=== PATIENT | female | born 1985 | race Caucasian/White ===

== ENCOUNTER 2023-03-26 17:04 | Observation (INO) | payer MEDICARE, MEDICAID, SELFPAY ==
--- NOTE | 2023-03-03 17:05 | PCM.HP.BLA ---
History and Physical Date of Admission: 03/26/23 HPI: The patient is a 37 year old female presenting for pre-operative visit. She is scheduled for total laparoscopic hysterectomy with bilateral salpingectomy, exam under anesthesia and cystoscopy, for abnormal uterine bleeding and pelvic pain on 03/26/2023. Procedure discussed along with risks, benefits and complications. Other alternatives discussed for management. Consent form signed? Yes. ? ? PAST MEDICAL HISTORY PAST MEDICAL HISTORY Diagnosis Date ? Allergic rhinitis, cause unspecified ? ? Allergic rhinitis ? Celiac artery compression syndrome (HCC) ? ? Colon polyps ? ? Constipation ? ? Diarrhea ? ? Dysphagia ? ? Eczema ? ? Esophageal reflux ? ? Gastroesophageal reflux ? Fracture ? ? Right Collarbone ? Hemorrhoid ? ? Hemorrhoids ? Liver hemangioma ? ? Median arcuate ligament syndrome (HCC) ? ? Ovarian cyst ? ? ? PAST SURGICAL HISTORY PAST SURGICAL HISTORY Procedure Laterality Date ? DELIVERY ONLY ? 10/02/2015 ? , low transverse ? CHOLECYSTECTOMY ? 02/25/2019 ? ? COLONOSCOPY ? ? ? EGD ? ? ? LAPS ABD PRTM&OMENTUM DX W/WO SPEC BR/WA SPX ? 03/2017 ? LAPAROSCOPIC RELEASE OF MEDIAN ARCUATE LIGAMENT ? PAST SURGICAL HISTORY OF ? 04/01/2017 ? [facility] ? SPINE SURGERY HX ? 03/07/2022 ? spinal cord stimulator ? TONSILLECTOMY HX ? CURRENT MEDICATIONS Current Outpatient Medications Medication Sig Dispense Refill ? UBRELVY 100 mg tablet 1 AT ONSET OF MIGRAINE. MAY REPEAT IN 2 HOURS IF NEEDED. DONE EXCEED 2 DOSAGES IN 24 HOURS. ? ? ? DULoxetine (CYMBALTA) 60 mg capsule Take 60 mg by mouth once daily. ? ? ? hydrOXYzine HCl (ATARAX) 10 mg tablet TAKE 1 TABLET BY MOUTH 3 TIMES DAILY NEEDED FOR ANXIETY OR MUSCLE SPASMS. ? ? ? cyclobenzaprine (FLEXERIL) 10 mg tablet TAKE 1 TABLET BY MOUTH 2 TIMES DAILY NEEDED FOR MUSCLE SPASMS. ? ? ? amitriptyline (ELAVIL) 50 mg tablet TAKE 1 TABLET BY MOUTH EVERYDAY AT BEDTIME ? ? ? gabapentin (NEURONTIN) 800 mg tablet Take 800 mg by mouth four times daily. ? ? ? ibuprofen (MOTRIN) 400 mg tablet Take 400 mg by mouth every 6 hours as needed for Pain. ? ? ? levonorgestrel (MIRENA) 20 mcg/24 hours (5 yrs) 52 mg IUD 1 Each by INTRAUTERINE route as directed. 1 Each 0 ? diltiazem (CARDIZEM) 30 mg tablet Take 30 mg by mouth twice daily. ? 5 ? HYDROcodone-acetaminophen (NORCO) 5-325 mg per tablet Take 1 tablet by mouth every 4 hours as needed. ? ? ? tiZANidine (ZANAFLEX) 4 mg tablet TAKE 1 TABLET BY MOUTH EVERYDAY AT BEDTIME ? 0 ? esomeprazole (NEXIUM) 40 mg capsule Take 40 mg by mouth. ? ? ? meclofenamate (MECLOMEN) 100 mg capsule Take 1 capsule by mouth every 6 hours. 30 capsule 1 ? promethazine (PHENERGAN) 25 mg tablet Take 25 mg by mouth. ? ? ? ondansetron (ZOFRAN) 4 mg tablet Take 1 tablet by mouth every 8 hours as needed for Nausea/Vomiting. 90 tablet 5 ? diphenhydramine HCl (BENADRYL ORAL) Take by mouth as needed. ? MULTIVIT-MINERALS/FOLIC ACID (WOMEN'S MULTIVITAMIN GUMMIES ORAL) Take by mouth once daily. ? ? ? acetaminophen (TYLENOL) 325 mg tablet Take 2 tablets by mouth every 6 hours as needed for Pain (first line pain medication). ? ? ? No current facility-administered medications for this visit. ? ? ALLERGIES: Seasonal Allergies ? PERSONAL HISTORY: SOCIAL HISTORY Social History ? Tobacco Use ? Smoking status: Never ? Smokeless tobacco: Never Vaping Use ? Vaping Use: Never used Substance Use Topics ? Alcohol use: Yes ? ? Comment: Rarely ? Drug use: No ? FAMILY HISTORY: FAMILY HISTORY FAMILY HISTORY Problem Relation Age of Onset ? Hyperlipidemia Mother ? ? Hypertension Mother ? ? Heart Mother ? ? Breast Cancer Mother 61 ? Colon Cancer Father ? ? Diabetes Father ? ? other (Bipolar) Sister ? ? Breast Cancer Maternal Grandmother ? ? Thyroid Maternal Grandmother ? ? Hypertension Maternal Grandfather ? ? Skin Cancer Maternal Grandfather ? ? Melanoma, BCC ? other (colon polyps) Maternal Grandfather ? ? Breast Cancer Paternal Grandmother ? ? other (Pancreatitis) Paternal Grandmother ? ? Heart Paternal Grandfather ? ? other (Healthy) Daughter ? ? other (Healthy) Son ? ? ? REVIEW OF SYMPTOMS: GENERAL: denies fevers or chills ENDOCRINOLOGY: has not been on steroids Cardiology : denies palpitations or chest pain Respiratory: denies SOB or cough Hematology: denies history of prolonged bleeding or easy bruising or VTE Allergy: Denies history of personal or family history of allergy to anesthesia ? ? PHYSICAL EXAMINATION: ? VITALS: Blood pressure 118/76, pulse 84, resp. rate 16, height 5' 2 (1.575 m), weight 225 lb (102.1 kg), last menstrual period 03/22/2021, SpO2 96 %. ? GENERAL: The patient is well nourished, well hydrated in no acute distress. , The patient is oriented to time, place, and person. NECK: Supple. No lynphadenopathy, normal thyroid, no thyromegaly. LUNGS: Clear to auscultation bilaterally. no wheezes, rhonchi or rales HEART: Regular rate and rhythm, Normal heart sounds, and No murmurs or gallops EMB-01/06/2023 neg pap/hrhpv 12/2022- neg pelvic US 12/22/22 DATE OF EXAM: Dec 22 2022 11:34AM ? WRU ? 1060 ?- ?US FEMALE PELVIS TRANSVAG ?/ PROCEDURE REASON: Pelvic pain ?? ? * * * * Physician Interpretation * * * * ?EXAMINATION: ? TRANSVAGINAL AND LIMITED TRANSABDOMINAL PELVIC ULTRASOUND CLINICAL HISTORY: ?Pelvic pain. ?IUD TECHNIQUE: Sonography of the pelvis was performed by transvaginal and transabdominal (limited) techniques. ?Images were obtained and stored in a permanent archive. MQ: ?UFP_1 COMPARISON: 11/21/2019 RESULT: Uterus size: 10 x 4.2 x 4.5 cm ?? ? -Orientation: Anteverted ?? ? -Myometrium: Normal sonographic appearance. ?? ? -Endometrial echo complex: 0.5 cm . ?IUD in good position within the endometrium ?? ? -Cervix: Small amount of endocervical fluid Right ovary: 3.4 x 2.9 x 2.1 cm Simple 1.5 cm cyst Left ovary: 4.1 x 2.5 x 3 cm Simple 2.4 cm cyst Pelvis free fluid: None. ? IMPRESSION: Abnormal uterine bleeding, pelvic pain. ? PLAN: The risks/benefits/alternatives and personal involved for the planned TLH, bilateral salpingectomy and cystoscopy were reviewed with the patient. Her questions were answered to her satisfaction and she desires to proceed. Consent was signed. I reviewed with her postop instructions and expectations. ? ? I have reviewed and updated past medical and surgical history, medications and allergies Assessment & Plan Assessment/Plan (1) Pelvic pain: (2) Abnormal uterine bleeding (AUB):
--- NOTE | 2023-03-19 10:01 | EKG12_ITS ---
Test Reason : PRE OP Blood Pressure : / mmHG Vent. Rate : 085 BPM Atrial Rate : 085 BPM P-R Int : 146 ms QRS Dur : 072 ms QT Int : 348 ms P-R-T Axes : 037 009 019 degrees QTc Int : 414 ms Normal sinus rhythm Normal ECG Confirmed by JAMES CERON, ERNESTO ([id number]), editor newspaper MARLON BRANNON ([id number]) on 03/20/2023 8:44:25 AM Referred By: Lois Austin Confirmed By:ERNESTO RAMIREZ MD
[2023-03-19 10:55] LABS: Hematocrit 37.3 % (37-47); Hemoglobin 12.3 g/dL (12.0-15.0); Mean Corpuscular Hgb 31.7 pg (27.0-32.0); Mean Corpuscular Volume 96.1 fL (81-99); Mean Platelet Vol. 10.9 fl (6.2-12.0); Platelet Count 369 K/mm3 (150-450); RBC Distribution Width CV 12.4 % (11.6-14.6); RBC Distribution Width SD 43.1 fl (35.1-43.9); Red Blood Count 3.88 M/mm3 (4.2-5.4); White Blood Count 8.9 K/mm3 (4.4-11.0)
[2023-03-19 11:35] LABS: Anion Gap 6 (5-15); BUN 8 mg/dL (7-18); BUN/Creat Ratio 10.8 RATIO (10-20); Calcium,Total 9.7 mg/dL (8.5-10.1); Chloride 106 mmol/L (98-107); Creatinine, Serum 0.74 mg/dL (0.55-1.02); EST Glomerular Filtration Rate 94 mL/min (>60); Est Glom Filt Rate - Afr Amer 114 mL/min (>60); Glucose 105 mg/dL (74-106); Potassium 3.9 mmol/L (3.5-5.1); Sodium Level 138 mmol/L (136-145)
[2023-03-26] VITALS (16 sets, daily range): BP systolic 91–137; BP diastolic 43–87; PULSE 83–108; RESP 1–18; TEMP 36.4–37.2; O2SAT 93–100; BMI 42.2
[2023-03-26 06:16] LABS: Internal QC Validated? YES +Cl - CLEAR BKGD; Pregnancy, Urine Negative Negative
[2023-03-26] MEDS: Enoxaparin 40 MG/0.4 ML Syringe SC (06:34)
[2023-03-26] MEDS: Acetaminophen 500 MG Tablet 1000 MG PO ×3 (06:34→22:45)
[2023-03-26] MEDS: Phenazopyridine 95 MG Tablet 190 MG PO (06:35)
[2023-03-26] MEDS: Celecoxib 200 MG Capsule 400 MG PO (06:35)
[2023-03-26] MEDS: Scopolamine 1mg/72hr Patch 1 PATCH TD (06:36)
[2023-03-26] MEDS: Gabapentin 600 MG Tablet PO (06:36)
[2023-03-26] MEDS: Lactated Ringers 1,000 ML 40 ML IV (06:37)
[2023-03-26] MEDS: Magnesium 1 GM over 15 mins IV (06:38)
--- NOTE | 2023-03-26 07:30 | HYST_PTH ---
PATIENT: ZEN LUTZ LOC: [facility]3 U#:[id number] AGE/SX: 37/F [place] [facility] [place]26/[address]: Dr. Lois Austin MD : [id number] BED: 1 DIS: 03/27/2023 SPEC #: [id number] RECD: 03/26/23 11:19 STATUS: MAXIM REMiguel A #: [id number] SELENE: 03/26/23 07:[address]: Lois Austin DEPT: SURGICAL PATHOLOGY RECD BY: Radha Barriga ENTERED: 03/26/23 11:32 SP TYPE: HYSTERECT OTHR DR: Dr. Janak Vinson MD Tissues: Uterus, NOS Procedures: Surgery Specimen Level V HEADER OPERATION: ERAS, total laparoscopic hysterectomy, salpingectomy, cysto PRE-OP DIAGNOSIS: Pelvic pain, abnormal uterine bleeding TISSUE SUBMITTED: Uterus, cervix, bilateral tubes MICROSCOPIC DIAGNOSIS Uterus, cervix, bilateral fallopian tubes, hysterectomy and bilateral salpingectomy: Cervix ? chronic cystic cervicitis. Endometrium ? consistent with exogenous hormone effect with focal cystic changes. Myometrium - no pathologic diagnosis. Bilateral fallopian tubes - no pathologic diagnosis. IUD, gross only. See comment. CRISTOBAL:kraig 03/27/2023 COMMENT Cylindrical segment of tissue attached to the anterior uterine wall is consistent with fibromuscular tissue. Clinical correlation and appropriate follow-up are necessary. MICROSCOPIC DESCRIPTION Slides are reviewed. GROSS DESCRIPTION Received in fixative is one container labeled with the patient's name and designated uterus, cervix, bilateral fallopian tubes. The specimen consists of a hysterectomy specimen consisting of uterus with cervix and detached bilateral fallopian tubes. The uterus with cervix weighs 104 gm and measures 10.5 x 7.0 x 4.0 cm. At the fundus anteriorly, a cylindrical segment of indurated tissue is noted measuring 1.0 cm in length and 0.7 cm in diameter. The ectocervical mucosa is unremarkable. The external os is circular in contour and covered with hemorrhagic, mucoid fluid. A portion of string from an IUD is projecting beyond the external os. The endocervical canal measures 4.0 cm in length and the endocervical mucosa is bojorquez, glistening and unremarkable. The triangular endometrial cavity measures 4.5 cm in length and 2.5 cm in width. The endometrial cavity shows a well-positioned white T-shaped intrauterine device. The horizontal arm measures 3.2 cm in length and vertical arm of the T measures 3.0 cm in length. A two-prong suture measures 9.5 cm in length. Invasion into the uterine wall is not seen. The endometrium is bojorquez, glistening without any mass lesion and measures 0.2 cm in thickness. Sections of the uterine wall do not reveal any mass lesion and measures 2.0 cm in thickness. The fallopian tubes are not identified as right or left and each measure 7.0 cm in length and 0.5 cm in diameter. Sections reveal unremarkable cut surfaces. Atm Manager sections are submitted in nine cassettes as follows: 1 - anterior cervix, 2 - posterior cervix, 3 & 4 - anterior uterine wall, 5 & 6 - posterior uterine wall, 7 - cylindrical structure present at the fundus anterior surface, 8 - one fallopian tube, 9 - second fallopian tube. / CRISTOBAL:kraig 03/26/2023 TC:5 CPT: 93092
[2023-03-26 08:10] LABS: Bedside Glucose 105 mg/dL (74-106)
[2023-03-26] MEDS: Cefazolin 2 GM in 0.9% Normal Saline 100 ML IV (08:30)
[2023-03-26] MEDS: Bupivacaine Mpf 0.5% 30 ML VIAL (08:37)
[2023-03-26] MEDS: Lubricating Jelly 60 GM Tube 30 GM (08:37)
[2023-03-26] MEDS: dexAMETHasone 4 MG/ML Vial 8 MG IV (08:41)
[2023-03-26] MEDS: Ondansetron 4 MG/2 ML Vial IV (09:45)
--- NOTE | 2023-03-26 10:04 | OP.PCM_ITS ---
Problems Associated Problem List Diagnoses (1) Pelvic pain: (2) Abnormal uterine bleeding (AUB): Report of Operation Date of Procedure: 03/26/23 Pre-Operative Diagnosis: AUB, pelvic pain Post-Operative Diagnosis: same+ adhesion of uterus to anterior abdominal wall Surgery/Procedure Performed:: TLH, bilateral salpingectomy and cystoscopy Description of Surgical Findings:: normal boggy uterus, 1 cm diameter dense adhesion of uterine fundus to anterior abdominal wall, normal tubes and ovaries, normal vagina and cervix Surgeon: Lois Austin telepathist: Mary Arboleda telepathist: Hector Morfin MS3 Type of Anesthesia: General Anesthesiologist: Ana Nam Special Medications: none Specimen's removed: uterus, cervix, bilateral tubes Drains: none Estimated Blood Loss (mL): 200 Fluids Replaced: 1000 mL Description of Procedure: The patient was taken to the operating room where she was prepped and draped in the dorsal lithotomy position. Her arms were tucked to the side and padded and her legs were placed in the yellowfin stirrups. Care was taken to ensure that she was placed in a neurologically safe and neutral position. A weighted speculum was placed in the vagina and the anterior lip of the cervix was grasped with a single-tooth tenaculum. The cervix sounded to 9 centimeters. 2-0 Vicryl sutures were secured to the cervix at 3 and 9:00. The 3 cm uterine delneator was placed into the cervix and the balloon inflated. The stay sutures were placed through the cup and secured down to the cervix. Once the deliniator was secured to the cervix the Palacio catheter was placed to straight drain. Attention was turned to the abdominal portion of the case. Before skin incisions were made they were infiltrated with 0.5% Marcaine solution for local anesthetic. A 5 mm intraumbilical incision was made and while tenting the anterior abdominal wall up with towel clamps a 5 mm blade less trocar and sleeve were advanced directly into the peritoneal cavity. Peritoneal placement was confirmed with the laparoscope the pneumoperitoneum was created, and the underly ing abdominal contents were intact. The patient was placed in Trendelenburg and the above findings were noted. Right and left lateral 5 mm trochars were placed under direct visualization without difficulty. The dense adhesion to the anterior abdominal wall was found to be free of any other structures. The LigaSure was used to clamp, seal and divide it from the anterior abdominal wall to free up the uterus. The antimesenteric portion of the tube was clamped sealed and transected serially on both sides with the LigaSure device. The round ligaments were clamped sealed and transected and a window was made in the peritoneum. The utero-ovarian ligaments were then clamped sealed and transected with the LigaSure device and the pedicles were hemostatic The bladder flap was dissected down with the LigaSure device and blunt dissection and the uterine arteries were then skeletonized. The uterine arteries were clamped sealed and transected on both sides with the LigaSure device. Then along the cardinal ligament uterine arteries adjacent to the cervix were clamped sealed and transected with the LigaSure device to move them away from the vaginal cuff angle. At this point the pedicles were all examined and found to be hemostatic. There was some black bleeding from the uterus. The bladder flap was rechecked and found to be adequately down. The monopolar tip of the LigaSure device was then used to enter the anterior vagina. The vaginal manipulator cup was noted in the vaginal colpotomy incision was made circumferentially around the cup. When the 3 and 9:00 positions of the cervicovaginal junction were reached these were clamped sealed and transected with the LigaSure device to secure any small remaining vessels. At this point the pedicles were hemostatic from above and attention was turned to the vaginal portion of the case again. The uterus was brought intact out through the vaginal colpotomy incision along with the tubes There is some bleeding from the left vaginal cuff angle and this was grasped with a Mary clamp. The bleeding blood vessel was oversewn with 0 Vicryl suture and was hemostatic. Vaginal angle sutures were placed on both sides with 0 Vicryl sutures and care was taken to ensure that the uterosacral ligament was secured into this stitch. The remainder the vagina was then closed horizontally with interrupted 0 Vicryl sutures. The cuff was hemostatic vaginally. The Palacio catheter was removed and a cystoscopy was performed. The bladder appeared normal and was intact. Both ureteral orifices were noted and both ureteral jets were seen. The cystoscope was removed and the Palacio catheter was placed back to straight drain. A sponge stick was placed in the vagina to help place traction against the vaginal cuff and the pneumoperitoneum was re-created. The suction canvas goods supervisor was used to remove any blood and clots from the peritoneal cavity. The pedicles were reexamined and found to be hemostatic. The vaginal cuff was hemostatic. Some Galilea was placed over the cuff and the pedicles and no active bleeding was noted through the Galilea. The right and left lateral ports were taken out and the sites were hemostatic. The pneumoperitoneum was released and even under low pressure there was no bleeding of any of the pedicles are vaginal cuff. The umbilical port was removed. The umbilical skin incisions were closed with Monocryl suture and skin glue by Dr. Hinson. The vaginal instruments were removed by me and a vaginal sweep was completed by me. The surgery was performed by me with assistance other than the portions dictated as above. There were no qualified residents available for this procedure. All sponge lap and needle counts were correct and the patient was transferred to the recovery room in stable condition. Grafts/Implants Used: none Procedure Start Time: 08:37 Procedure Stop Time: 10:06 Complications none Admit VTE Documentation VTE Mechan Device Prophylaxis: SCD's VTE Pharm Prophylaxis ordered?: No Reason prophylaxis not ordered:: Procedure Not Indicated
[2023-03-26] MEDS: Lactated Ringers 1,000 ML 75 ML IV (10:05)
--- NOTE | 2023-03-26 10:12 | PCM.DC ---
Discharge Instructions Diet Discharge Diet: Light diet - advance as tolerated Activity Discharge Activity: May Drive (In 5 to 7 days when no longer needing pain medication) and May Take a Tub Bath (In 6 weeks) May shower in (days): 1 May resume sexual activity in: 6-8 weeks Lifting Restrictions: 15 pounds for 6 weeks Dressing / Incision Call your doctor if your incision/area has: Continuous Slow Oozing, Sudden Increased Bleeding, Increased Pain/ Swelling, Foul Smelling Discharge and - (Soaking through a maxi pad in less than an hour) Call your doctor if you observe: Fever of 101 or Higher Cleanse incision/area with: Soap & Water (Your incisions have skin glue it can get wet. Leave it on for at least 10 days.) Follow Up Care Please Follow Up With: Lois Austin MD When: in 1-2 and 6 weeks or as needed. Please contact the office via [employer] or at [phone] if you have any questions or concerns. Test Results: Test results from this visit will be discussed in further detail at your follow-up appointment, if applicable. Discharge Plan Admission Primary Reason for Your Visit: Total laparoscopic hysterectomy Attending Provider: Lois Austin Primary Care Provider: Janak Vinson Discharge Orders/Prescriptions Prescriptions: Continued cyclobenzaprine 10 mg tablet 10 mg PO BID PRN PRN (Reason: Pain) Label Comments: TAKE 1 TABLET BY MOUTH 2 TIMES DAILY NEEDED FOR MUSCLE SPASMS. hydrocodone-acetaminophen 5-325 mg tablet 1 tab PO DAILY PRN PRN (Reason: Pain) Label Comments: TAKE 1 TABLET BY MOUTH EVERY DAY NEEDED DNFB 04/04 ondansetron HCl 4 mg Tablet 4 mg PO PRN PRN (Reason: Nausea) amitriptyline 50 mg tablet 50 mg PO QHS Label Comments: TAKE 1 TABLET BY MOUTH EVERYDAY AT BEDTIME gabapentin 800 mg tablet 800 mg PO 4X/DAY Label Comments: TAKE 1 TABLET BY MOUTH FOUR TIMES A DAY promethazine 25 mg tablet 25 mg PO DAILY PRN PRN (Reason: Nausea) oxcarbazepine 600 mg tablet See Rx Instructions .ROUTE .COMPLEX Rx Instructions: 600MG IN MORNING 900 MG AT NIGHT hydroxyzine HCl 10 mg tablet 10 mg PO TID PRN PRN (Reason: PAIN) Label Comments: TAKE 1 TABLET BY MOUTH 3 TIMES DAILY NEEDED FOR ANXIETY OR MUSCLE SPASMS. multivitamin Capsule 1 cap PO DAILY duloxetine 60 mg capsule,delayed release(DR/EC) 60 mg PO DAILY Label Comments: TAKE 1 CAPSULE BY MOUTH EVERY DAY Ubrelvy 100 mg tablet 100 mg PO DAILY PRN PRN (Reason: Headache) Label Comments: 1 AT ONSET OF MIGRAINE. MAY REPEAT IN 2 HOURS IF NEEDED. DONE EXCEED 2 DOSAGES IN 24 HOURS. Other Ambulatory Orders: 12 Lead EKG (Routine) Timeframe: [id number] Location: None Selected Ordered By: Dr. Steven Valdes Referrals / Follow Up: Janak Vinson MD [Primary Care Provider] -
[2023-03-26 13:02] LABS: Hematocrit 33.4 % (37-47); Hemoglobin 11.2 g/dL (12.0-15.0); Mean Corp Hgb Conc 33.5 g/dL (32-36); Mean Corpuscular Volume 95.4 fL (81-99); Mean Platelet Vol. 10.3 fl (6.2-12.0); Platelet Count 321 K/mm3 (150-450); RBC Distribution Width CV 12.6 % (11.6-14.6); RBC Distribution Width SD 43.6 fl (35.1-43.9); White Blood Count 11.6 K/mm3 (4.4-11.0)
[2023-03-26] MEDS: oxyCODONE 5 MG Tablet PO ×2 (14:18→22:05)
[2023-03-26] MEDS: Gabapentin 800 MG Tablet PO ×2 (17:56→22:04)
[2023-03-26] MEDS: 0.9% Saline Lock 10 ML Syringe IV (17:56)
[2023-03-26] MEDS: HYDROmorphone 1 MG/ML Syringe IV (17:57)
[2023-03-26 18:59] LABS: Mean Corp Hgb Conc 33.3 g/dL (32-36); Mean Corpuscular Hgb 31.8 pg (27.0-32.0); Mean Corpuscular Volume 95.4 fL (81-99); Mean Platelet Vol. 10.3 fl (6.2-12.0); Platelet Count 348 K/mm3 (150-450); RBC Distribution Width CV 12.5 % (11.6-14.6); RBC Distribution Width SD 43.4 fl (35.1-43.9); Red Blood Count 3.46 M/mm3 (4.2-5.4)
[2023-03-26] MEDS: Ondansetron ODT 4 MG Tablet PO (19:46)
[2023-03-26] MEDS: Docusate Sodium 100 MG Capsule PO (22:04)
[2023-03-26] MEDS: Amitriptyline 25 MG Tablet 50 MG PO (22:04)
[2023-03-26] MEDS: hydrOXYzine 10 MG Tablet PO (22:16)
[2023-03-26] MEDS: DULoxetine Hcl 60 MG Capsule PO (22:17)
[2023-03-26] MEDS: OXcarbazepine 600 MG Tablet 900 MG PO (22:17)
[2023-03-27 02:04] VITALS: BP 110/60; PULSE 87; RESP 16; TEMP 36.8; O2SAT 94
[2023-03-27 05:40] VITALS: BP 102/54; PULSE 90; RESP 16; TEMP 36.8; O2SAT 97
[2023-03-27] MEDS: Acetaminophen 500 MG Tablet 1000 MG PO (05:53)
[2023-03-27] MEDS: oxyCODONE 5 MG Tablet PO (05:56)
[2023-03-27 06:20] LABS: Hematocrit 29.5 % (37-47); Mean Corp Hgb Conc 33.9 g/dL (32-36); Mean Corpuscular Hgb 32.1 pg (27.0-32.0); Mean Corpuscular Volume 94.6 fL (81-99); Mean Platelet Vol. 10.6 fl (6.2-12.0); Platelet Count 327 K/mm3 (150-450); RBC Distribution Width CV 12.6 % (11.6-14.6); RBC Distribution Width SD 43.4 fl (35.1-43.9); Red Blood Count 3.12 M/mm3 (4.2-5.4); White Blood Count 14.6 K/mm3 (4.4-11.0)
[2023-03-27 07:36] VITALS: BP 102/49; PULSE 88; RESP 18; TEMP 36.3; O2SAT 98
[2023-03-27] MEDS: Ensure Plus High Protein 120 ML LIQUID PO (07:39)
[2023-03-27 08:10] VITALS: O2SAT 96
--- NOTE | 2023-03-27 08:24 | PCM.PN.OB ---
Subjective Subjective pain well controlled. Feels a little lightheaded at times. However,gets that frequently. Fell down stairs at home 2 weeks ago. Denies SOB or CP. Able to ambulate to bathroom. No N/V. Not much of an appetite but eating some and drinking fluids without difficulty. Minimal spotting on pad Objective Data Objective Data Vital Signs: Vital Signs Temp Pulse Resp BP Pulse Ox O2 Del Method O2 Flow Rate 97.3 F L 88 18 102/49 L 98 Room Air 4 03/27/23 07:36 03/27/23 07:36 03/27/23 07:36 03/27/23 07:36 03/27/23 07:36 03/27/23 07:36 03/26/23 11:52 FiO2 39 03/26/23 10:45 Oxygen Flow Rate (L/min) 4 Oxygen Delivery Method Room Air Weight: 104.7 kg Body Mass Index (BMI) 42.2 Intake & Output: Intake and Output for Last 24 Hours 03/25/23 03/26/23 03/27/23 23:59 23:59 23:59 Intake Total 2362 / 2562 400 / 400 Output Total 1375 / 1375 Balance 2362 / 1687 -975 / -975 Lab / Micro Data Result Diagrams: 03/27/23 05:40 03/19/23 10:17 Labs: Laboratory Results - last 24 hr 03/26/23 12:41: WBC 11.6 H, RBC 3.50 L, Hgb 11.2 L, Hct 33.4 L, MCV 95.4, MCH 32.0, MCHC 33.5, RDW Std Deviation 43.6, RDW Coeff of Sheree 12.6, Plt Count 321, MPV 10.3 03/26/23 18:41: WBC 13.0 H, RBC 3.46 L, Hgb 11.0 L, Hct 33.0 L, MCV 95.4, MCH 31.8, MCHC 33.3, RDW Std Deviation 43.4, RDW Coeff of Sheree 12.5, Plt Count 348, MPV 10.3 03/27/23 05:40: WBC 14.6 H, RBC 3.12 L, Hgb 10.0 L, Hct 29.5 L, MCV 94.6, MCH 32.1 H, MCHC 33.9, RDW Std Deviation 43.4, RDW Coeff of Sheree 12.6, Plt Count 327, MPV 10.6 Physical Exam Narrative awake, alert, NAD abd soft, nondistended, moderately tender, no rebound or guarding skin warm,d ry and intact incisions- intact w/skinglue Assessment & Plan (1) Postoperative pain: PLAN: POD#1 s/p LAVH,bilateral salpingectomy. Mild acute blood loss anemia. Some from EBL during surgery, some likely dilutional. Stable. Patint tolerating well. D/c home and return or call with any problems. Roger. SOB/palpitations/VB or lightheaded. Prescriptions sent. D/c home and f/u as scheduled or prn. (2) Pelvic pain:
[2023-03-27] MEDS: Docusate Sodium 100 MG Capsule PO (09:20)
[2023-03-27] MEDS: DULoxetine Hcl 60 MG Capsule PO (09:20)
[2023-03-27] MEDS: Gabapentin 800 MG Tablet PO (09:20)
[2023-03-27] MEDS: OXcarbazepine 600 MG Tablet PO (09:21)
[2023-03-27 09:35] VITALS: BP 102/49; PULSE 88; RESP 18; TEMP 36.3; O2SAT 98
== END 2023-03-27 09:54 | disposition home or self-care (01) ==
LOC: SDC 17:23 → MS3 17:40
PROVIDERS: Anesthesiology; Admitting Provider Obstetrics & Gynecology; PCP Family Medicine; Referring Provider Obstetrics & Gynecology; Visit Provider Obstetrics & Gynecology
PROC: 0UT94ZZ Resection of Uterus, Percutaneous Endoscopic Approach (ICD-10-PCS; CPT 58571; principal; 2023-03-26 07:10)
DX: N93.9 Abnormal uterine and vaginal bleeding, unspecified (principal); K66.0 Peritoneal adhesions (postprocedural) (postinfection); R10.2 Pelvic and perineal pain; Z79.899 Other long term (current) drug therapy; K21.9 Gastro-esophageal reflux disease without esophagitis; E07.9 Disorder of thyroid, unspecified; G43.909 Migraine, unspecified, not intractable, without status migrainosus
CPT/HCPCS: 58571; 36415; 80048; 81025; 82962; 83735; 84443; 85027; 86850; 86900; 86901; 88307; 93005; 94668; 96374; 99221; 99252; J7120; A4216; G0378; G0463; J2405; J3475